=== PATIENT | male | born 2000 | race Caucasian/White ===

== ENCOUNTER 2018-07-15 11:01 | Emergency (ER) | payer BC ==
[2018-07-15] MEDS ORDERED: predniSONE 20 MG TAB PO ONE (11:07)
[2018-07-15] MEDS ORDERED: IPRATROPIUM/ALBUTEROL 3 ML DEYVIAL IH ONE (11:07)
[2018-07-15] MEDS ORDERED: KETOROLAC 15 MG/1 ML SDV IVP ONE (11:08)
--- NOTE | 2018-07-15 11:10 | EDPHY ---
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 He also has a sore throat and sinus congestion. His symptoms began to her 3 days ago. They have been gradually worsening. He has been traveling. No leg pain or swelling. Nonsmoker. No history of cardiac disease. Severity: Moderate Modifying factors: Known REVIEW OF SYSTEMS: Constitutional: See HPI EENTM: See HPI Respiratory: See HPI Cardiac: denies: chest pain, irregular heart rate, lightheadedness, palpitations Gastrointestinal/Abdominal: denies: abdominal pain, diarrhea, nausea, vomiting, blood streaked stools Genitourinary: denies: dysuria, frequency, hematuria, pain Musculoskeletal: denies: joint pain, muscle pain Skin: denies: lesions, rash, jaundice, bruising Neurological: denies: headache, numbness, paresthesia, tingling, dizziness, weakness Hematologic/Lymphatic: denies: blood clots, easy bleeding, easy bruising Immunologic/allergic: denies: HIV/AIDS, transplant 10 systems reviewed and negative except as noted EXAM: GENERAL: Well-appearing, well-nourished and in no acute distress. HEAD: Atraumatic, normocephalic. EYES: Pupils equal round and reactive to light, extraocular movements intact, sclera anicteric, conjunctiva are normal. ENT: TMs normal, nares patent, oropharynx clear without exudates. Moist mucous membranes. NECK: Normal range of motion, supple without lymphadenopathy or JVD. LUNGS: Left lower lobe rhonchi HEART: Regular rate and rhythm without murmurs, rubs or gallops. ABDOMEN: Soft, nontender, normoactive bowel sounds. No guarding, no rebound. No masses appreciated. BACK: No CVA tenderness, no spinal tenderness, step-offs or deformities EXTREMITIES: Normal range of motion, no pitting or edema. No clubbing or cyanosis. NEUROLOGICAL: Cranial nerves II through XII grossly intact. Normal speech, normal gait. 5/5 strength, normal movement in all extremities, normal sensation , normal reflexes PSYCH: Normal mood, normal affect. SKIN: Warm, dry, normal turgor, no visible rashes or lesions. Source: Patient Exam Limitations: No limitations - Medical/Surgical History Hx Chronic Respiratory Disease: No Hx Diabetes: No Hx Cardiac Disease: No Hx Renal Disease: No Hx Cirrhosis: No Hx Alcoholism: No Hx HIV/AIDS: No Hx Splenectomy or Spleen Trauma: No Other PMH: Reactive airway disease - Family History Significant Family History: No pertinent family hx - Social History Smoking Status: Never smoked Alcohol Use: Sober Drug Use: None Constitutional: Initial Vital Signs Temperature (C) 37.2 C 07/15/18 11:07 Heart Rate 88 07/15/18 11:07 Respiratory Rate 16 07/15/18 11:07 Blood Pressure 131/75 H 07/15/18 11:07 O2 Sat (%) 95 07/15/18 11:07 O2 Delivery Mode Room Air Allergies/Adverse Reactions: No Known Allergies Allergy (Unverified 07/15/18 11:06) Home Medications: Medication Instructions Recorded Albuterol 07/15/18 Azithromycin 250 mg PO DAILY #4 tablet 07/15/18 Venlafaxine HCl 07/15/18 buPROPion 07/15/18 Medical Decision Making - Diagnostics EKG Interpretation: An EKG obtained and was read and documented in trace view. Please see trace view for full reading and report. Sinus rhythm, no acute ischemic changes Imaging Results: Imaging Impressions Chest X-Ray 07/15/18 11:07 Impression: Mild airways disease/bronchitis. No pneumonia. Imaging: Discussed imaging studies w/ machine sole leveler Radiologist ED Course/Re-evaluation: 12:30 p.m. Patient's lab work is reassuring. EKG is reassuring. Chest x-ray consistent with bronchitis. Patient reports that this is the 3rd time this year he has had bronchitis and the past is improved with azithromycin. His pain is improved after steroids and Toradol. encouraged him to continue taking anti-inflammatories. Declines further workup or testing at this time. Differential Diagnosis: Partial list of the Differential diagnosis considered include but were not limited to; bronchitis, pneumonia, and although unlikely based on the history and physical exam, I also considered PE, acute coronary disease, pneumothorax, dissection, pericarditis. I discussed these differential diagnoses and the plan with the patient as well as the usual and expected course. The patient understands that the diagnosis is provisional and that in medicine we are not always correct and that further workup is often warranted. Usual and customary warnings were given. All of the patient's questions were answered. The patient was instructed to return to the emergency department should the symptoms at all worsen or return, otherwise to followup with the physician as we discussed. - Data Points Laboratory Results: Laboratory Results 07/15/18 11:11 07/15/18 11:11 07/15/18 07/15/18 07/15/18 11:16 11:11 11:11 WBC RBC Hgb Hct MCV MCH MCHC RDW Plt Count MPV Neut % (Auto) Lymph % (Auto) Emmons % (Auto) Eos % (Auto) Baso % (Auto) Nucleat RBC Rel Count Absolute Neuts (auto) Absolute Lymphs (auto) Absolute Monos (auto) Absolute Eos (auto) Absolute Basos (auto) Absolute Nucleated RBC Immature Gran % Immature Gran # D-Dimer 0.34 ug/mLFEU ug/mLFEU (0.00-0.50) Sodium 139 mEq/L mEq/L (135-145) Potassium 4.3 mEq/L mEq/L (3.5-5.2) Chloride 105 mEq/L mEq/L (97-110) Carbon Dioxide 25 mEq/l mEq/l (22-31) Anion Gap 9 mEq/L mEq/L (6-14) BUN 12 mg/dL mg/dL (7-23) Creatinine 1.1 mg/dL mg/dL (0.7-1.3) Estimated GFR > 60 Glucose 116 mg/dL H mg/dL (70-100) Calcium 9.2 mg/dL mg/dL (8.5-10.4) POC Troponin I 0.00 ng/mL ng/mL (0.00-0.08) 07/15/18 11:11 WBC 3.26 10^3/uL L 10^3/uL (3.80-9.50) RBC 4.75 10^6/uL 10^6/uL (4.40-6.38) Hgb 16.0 g/dL g/dL (13.7-17.5) Hct 44.0 % % (40.0-51.0) MCV 92.6 fL fL (81.5-99.8) MCH 33.7 pg pg (27.9-34.1) MCHC 36.4 g/dL g/dL (32.4-36.7) RDW 12.3 % % (11.5-15.2) Plt Count 175 10^3/uL 10^3/uL (150-400) MPV 11.1 fL fL (8.7-11.7) Neut % (Auto) 56.2 % % (39.3-74.2) Lymph % (Auto) 29.1 % % (15.0-45.0) Emmons % (Auto) 13.8 % H % (4.5-13.0) Eos % (Auto) 0.6 % % (0.6-7.6) Baso % (Auto) 0.3 % % (0.3-1.7) Nucleat RBC Rel Count 0.0 % % (0.0-0.2) Absolute Neuts (auto) 1.83 10^3/uL 10^3/uL (1.70-6.50) Absolute Lymphs (auto) 0.95 10^3/uL L 10^3/uL (1.00-3.00) Absolute Monos (auto) 0.45 10^3/uL 10^3/uL (0.30-0.80) Absolute Eos (auto) 0.02 10^3/uL L 10^3/uL (0.03-0.40) Absolute Basos (auto) 0.01 10^3/uL L 10^3/uL (0.02-0.10) Absolute Nucleated RBC 0.00 10^3/uL 10^3/uL (0-0.01) Immature Gran % 0.0 % % (0.0-1.1) Immature Gran # 0.00 10^3/uL 10^3/uL (0.00-0.10) D-Dimer Sodium Potassium Chloride Carbon Dioxide Anion Gap BUN Creatinine Estimated GFR Glucose Calcium POC Troponin I Medications Given: Discontinued Medications Albuterol/Ipratropium (Duoneb) 3 ml IH EDNOW ONE Stop: 07/15/18 11:08 Last Admin: 07/15/18 11:17 Dose: 3 ml Azithromycin (Zithromax) 500 mg PO EDNOW ONE PRN Reason: Protocol Stop: 07/15/18 12:31 Last Admin: 07/15/18 13:00 Dose: 500 mg Ketorolac Tromethamine (Toradol) 15 mg IVP EDNOW ONE Stop: 07/15/18 11:09 Last Admin: 07/15/18 11:17 Dose: 15 mg Prednisone (Prednisone) 60 mg PO EDNOW ONE Stop: 07/15/18 11:08 Last Admin: 07/15/18 11:18 Dose: 60 mg Point of Care Test Results: Chemistry 07/15/18 11:16 POC Troponin I 0.00 ng/mL ng/mL (0.00-0.08) Departure - Departure Disposition: Home, Routine, Self-Care Clinical Impression: Bronchitis Condition: Fair Instructions: Acute Bronchitis (ED) Referrals: Patient,NotPresent [Unknown] - As per Instructions [facility],. [Clinic] - As per Instructions Prescriptions: Azithromycin 250 mg PO DAILY #4 tablet
[2018-07-15 11:19] LABS: PLATELET COUNT 175 10^3/uL (150-400)
--- NOTE | 2018-07-15 11:24 | CPEKG ---
Test Reason : OPEN Blood Pressure : / mmHG Vent. Rate : 089 BPM Atrial Rate : 089 BPM P-R Int : 142 ms QRS Dur : 085 ms QT Int : 333 ms P-R-T Axes : 045 049 029 degrees QTc Int : [address] elev, probable normal early repol pattern Confirmed by Luis Kang ([id number] on 07/15/2018 11:23:46 AM Referred By: Luis Kang Confirmed By:Luis Kang
[2018-07-15] MEDS ORDERED: AZITHROMYCIN 250 MG TAB PO ONE (12:30)
[2018-07-15 13:00] VITALS: BP 121/71
== END 2018-07-15 13:05 | disposition home or self-care (01) ==
DX: J40 Bronchitis, not specified as acute or chronic (principal)
CPT/HCPCS: 84484-ER; 96374; J1885; J7512